=== PATIENT | female | born 1955 | race Caucasian/White ===

== ENCOUNTER 2018-02-10 13:04 | Inpatient (IN) | payer OTHER ==
--- NOTE | 2018-02-10 13:16 | PDOC ---
History of Present Illness - General Chief Complaint: Chest Pain Stated Complaint: SOB Time Seen by Provider: 02/10/18 13:16 History Source: Patient Exam Limitations: No Limitations
[2018-02-10] MEDS ORDERED: SODIUM CHLORIDE 1,000 ML IV STA (13:17)
[2018-02-10 13:35] LABS: BASO % 0.5 % (0-2.0); EOS % 0.5 % (0-4.5); HEMATOCRIT 39.9 % (32.4-45.2); HEMOGLOBIN 13.3 GM/dL (10.7-15.3); LYMPH % 14.3 % (8-40); MCH 29.1 pg (25.7-33.7); MCHC 33.4 g/dl (32.0-36.0); MEAN CELL VOLUME 87.3 fl (80-96); MEAN PLT VOLUME 7.2 fl (7.5-11.1); NEUT % 77.7 % (42.8-82.8); PLATELET COUNT 351 K/MM3 (134-434); RBC 4.56 M/mm3 (3.60-5.2); WHITE BLOOD COUNT 11.6 K/mm3 (4.0-10.0)
--- NOTE | 2018-02-10 13:45 | PDOC ---
History of Present Illness - General Chief Complaint: Chest Pain Stated Complaint: SOB Time Seen by Provider: 02/10/18 13:16 - History of Present Illness Initial Comments: 62 year old female with PMH of HTN, anxiety, and depression presenting with hypotension after an episode of sudden onset abdominal pain, diaphoresis, nausea , and weakness. States that she had all these symptoms of sudden onset approximately 1 hour prior to presentation along with a chest tightness (non- radiating, non-pleuritic, non-exertional). Abdominal pain was described as crampy 7/10 in quality in the LUQ. Denies fevers, chills, vomiting, blood from any orifice, syncope, recent illness, or other symptoms. Of note, her mother had an abdominal aortic aneurism. Also, she has lost approximately 15 pounds over the past month with salt restricted diet and exercise. 02/10/18 14:24 Past History - Past Medical History Allergies/Adverse Reactions: Allergies Allergy/AdvReac Type Severity Reaction Status Date / Time Penicillins Allergy Verified 02/10/18 13:18 Home Medications: Ambulatory Orders Escitalopram Oxalate [Lexapro -] 20 mg PO DAILY 02/11/18 Metoprolol Succinate 25 mg PO DAILY 02/11/18 Metoprolol Succinate [Toprol XL -] 25 mg PO DAILY #30 tab.sr.24h 02/12/18 levoFLOXacin [Levaquin -] 500 mg PO DAILY #5 tablet 02/12/18 COPD: No HTN: Yes - Suicide/Smoking/Psychosocial Hx Smoking History: Former smoker Have you smoked in the past 12 months: No Information on smoking cessation initiated: No Hx Alcohol Use: No Drug/Substance Use Hx: No Substance Use Type: None Review of Systems - Review of Systems Constitutional: Yes: Chills, Diaphoresis, Weakness. No: Fever, Loss of Appetite HEENTM: No: Tearing, Recent change in vision, Nose Pain Respiratory: No: Cough, Orthopnea, Shortness of Breath, Hemoptysis Cardiac (ROS): Yes: Lightheadedness, Chest Tightness. No: Chest Pain, Irregular Heart Rate, Palpitations ABD/GI: Yes: Nausea, Abdominal cramping. No: Diarrhea, Vomiting : No: Burning, Dysuria, Discharge, Frequency Musculoskeletal: Yes: Muscle Weakness. No: Muscle Pain Integumentary: No: Lesions, Lumps, Pallor, Pruritus, Rash Neurological: No: Headache, Numbness, Paresthesia Psychiatric: Yes: Anxiety, Depression *Physical Exam - Vital Signs Last Vital Signs Temp Pulse Resp BP Pulse Ox 98.3 F 58 L 18 82/61 99 02/10/18 13:16 02/10/18 13:27 02/10/18 13:27 02/10/18 13:27 02/10/18 13:27 - Physical Exam General Appearance: Yes: Nourished, Appropriately Dressed. No: Apparent Distress HEENT: positive: EOMI, SVETLANA, Normal ENT Inspection, Normal Voice Neck: positive: Trachea midline, Normal Thyroid, Supple. negative: Tender, Rigid Respiratory/Chest: positive: Lungs Clear, Normal Breath Sounds. negative: Chest Tender, Respiratory Distress, Accessory Muscle Use Cardiovascular: positive: Regular Rhythm, Regular Rate Gastrointestinal/Abdominal: positive: Normal Bowel Sounds, Flat, Soft. negative : Tender Musculoskeletal: positive: Normal Inspection. negative: CVA Tenderness Extremity: positive: Normal Capillary Refill, Normal Inspection, Normal Range of Motion. negative: Tender Integumentary: positive: Normal Color, Dry, Warm Neurologic: positive: night shift II-XII NML intact, Fully Oriented, Alert, Normal Mood/ Affect, Normal Response, Motor Strength / ED Treatment Course - LABORATORY CBC & Chemistry Diagram: 02/11/18 06:00 02/12/18 06:20 - ADDITIONAL ORDERS Additional order review: 02/10/18 13:23 RBC 4.56 MCV 87.3 MCHC 33.4 RDW 15.0 MPV 7.2 L Neutrophils % 77.7 Lymphocytes % 14.3 Monocytes % 7.0 Eosinophils % 0.5 Basophils % 0.5 Medical Decision Making - Medical Decision Making 62 year old female with PMH of HTN on three different therapies presenting with an episode of abd pain/ nausea and hypotension in our ED as low as 60s systolic. Patient was AO x3 and appeared very comfortable despite low pressures. Her skin also appeared to be well perfused. Major concern is AAA vs. over medication anti-hypertensives. Of note she has very poor renal function on our labs so contrast cannot be administered. Performed dry CT of chest/ abdomen along with abdominal ultrasound. No aneurism noted. Patient';s presures improved to 90s/ 100s systolic after 2 L NS. Patietn admitted for further workup of renal failure and hypotension. 02/14/18 00:08 *DC/Admit/Observation/Transfer Diagnosis at time of Disposition: Shortness of breath - Discharge Dispostion Disposition: HOME Condition at time of disposition: Improved - Prescriptions - Referrals - Patient Instructions - Post Discharge Activity
[2018-02-10 13:49] LABS: INR 1.04 (0.82-1.09); PROTHROMBIN TIME (PATIENT) 11.8 SEC (9.7-13.0)
--- NOTE | 2018-02-10 14:07 | PDOC ---
Attending Attestation - Resident Resident Name: JenniferLisamercedes - ED Attending Attestation I have performed the following: I have examined & evaluated the patient, The case was reviewed & discussed with the resident, I agree w/resident's findings & plan, Exceptions are as noted - HPI HPI: 02/10/18 17:34 Ms Priest is a 62 yo F with a h/o HTN She was in her usual state of health, went to work today She noted a sudden onset of nausea She denies chest pain, she denies palpitations She noted nausea No prior episodes like this No recent travel No diarrhea - Physicial Exam PE: 02/10/18 17:36 On examination Pt BP is low Pt rrr, no murmur appreciated Lungs are clear No abd tenderness at this time No lower extremity edema Pt is awake and alert, oriented, appropriately interactive - Medical Decision Making 02/10/18 17:37 Pt presents with hypotension, nausea She is notably hypotensive She denies chest pain She currently denies abdominal pain She denies dizziness DD: ACS, electrolyte abnormality, Anemia, sepsis, ruptured aneurysm Will do: Labs Consider CT 02/10/18 17:38 Laboratory Tests 02/10/18 02/10/18 02/10/18 13:23 13:23 16:41 WBC 11.6 H Hgb 13.3 Hct 39.9 Plt Count 351 Potassium 5.7 H BUN 35 H Creatinine 2.0 H Random Glucose 130 H Lactic Acid 1.4 Creatine Kinase 144 Troponin I < 0.02 B-Natriuretic Peptide 366.85 H Renal insufficiency with no old lab reports for comparison Slight QBC elevation, Lactate is nml Trop negative US nml aorta Unable to do CTA Call placed to radiology re: doing MRI with contrast Case reviewed with Dr Rondon He recommends Non con CT, recommends ordering MRI with contrast of Chest Will do US of abd aorta US: no AAA CT chest/abd/pelvis: Ovarian cyst, scant free fluid, no pericardial effusion, no pleural effusion, 02/10/18 17:41 02/10/18 17:44 Repeat BP improving s/p IVF Will admit to hospitalist Critical Care Total Critical Care Time (in minutes): 60 Critical Care Statement: The care of this patient involved high complexity decision making to prevent further life threatening deterioration of the patient 's condition and/or to evaluate & treat vital organ system(s) failure or risk of failure.
[2018-02-10 14:08] LABS: ALBUMIN 3.6 g/dl (3.4-5.0); ANION GAP 8 (8-16); BLOOD UREA NITROGEN 35 mg/dL (7-18); CALCIUM 8.9 mg/dL (8.5-10.1); CHLORIDE 100 mmol/L (98-107); CO2 28 mmol/L (21-32); GLUCOSE,RANDOM 130 mg/dL (74-106); SODIUM 136 mmol/L (136-145)
[2018-02-10 14:10] LABS: SGPT/ALT 25 U/L (12-78)
[2018-02-10 14:11] LABS: POTASSIUM 5.7 mmol/L (3.5-5.1)
[2018-02-10 14:15] LABS: ALK PHOS 67 U/L (45-117); BILIRUBIN,TOTAL 0.6 mg/dL (0.2-1.0); N-TERMINAL BNP 366.85 pg/ml (5-125); TOT PROT 7.2 g/dl (6.4-8.2)
[2018-02-10 14:17] LABS: SGOT/AST 40 U/L (15-37)
--- NOTE | 2018-02-10 18:54 | HP ---
CHIEF COMPLAINT: nausea/vomiting/weakness PCP: HISTORY OF PRESENT ILLNESS: Patient is a 62 year old female with a significant past medical history of hypertension, anxiety and depression. She presents to the ED today with hypotension (BP 70/40s) after an acute episode of sudden onset of abdominal pain , diaphoresis, nausea, dizziness and weakness while at work. She also had chest tightness (non radiating) with abdominal pain. 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 She report that took all her cardiac medications this morning at the same time she usually does. She denies any similar episodes in the past. Denies any diarrhea, nausea or vomiting. Denies sick contacts or recent travel. States that she has lost apx 15 lbs in the last month while on a weight watchers program. In the ED an abdominal CT and Ultrasound/Aorta was done which showed no evidence of AAA. She was also noted to have renal insufficiency along with hypotension. Her blood pressure improved with IVF. Imaging: Ultrasound/aorta/us, no evidence of AAA, suspected large left ovarian cyst Abd CT: No thoracic aortic aneurysm is identified. The appears to be partial imaging small amt of fluid soft tissue stranding tracking along the righ axillary vascularture representing infection, inflammation, congestion, vascular thrombosis, recent/remote surgery, post traumatic change. A 3mm left lower lobe superior segment pulm nodule is noted. [address] recommended. No abdominal aortic aneurysm is seen. A non specific 8.5 x 8.4 x 7.4 cm left adnexal cystic structure seen. PRODUCT SAFETY EXPERT consult recommended. . Possible 2 cm right ovarian cysts ER course was notable for: (1) Hypotension 70/40, reponding to IVF (2) K 5.7 (3) renal insufficiency 35/2.0 Current Medications: Escitalopram 20mg daily prn Metoprolol 25mg daily Amlodopine/Besy 5-20mg daily HCTZ 12.5 daily Recent Travel: denies PAST MEDICAL HISTORY: PAST SURGICAL HISTORY: Social History: Smoking: n/a Alcohol:n/a Drugs: n/a Family History: Allergies Penicillins Allergy (Verified 02/10/18 13:18) HOME MEDICATIONS: Home Medications Medication Instructions Recorded Amlodipine Besylate 5 mg PO 02/10/18 Hydrochlorothiazide [Hctz -] 50 mg PO DAILY 02/10/18 Lisinopril [Prinivil] 20 mg PO DAILY 02/10/18 PHYSICAL EXAMINATION Vital Signs - 24 hr 02/10/18 02/10/18 02/10/18 13:16 13:27 14:12 Temperature 98.3 F Pulse Rate 59 L 58 L Pulse Rate [ 58 L 62 Apical] Respiratory 20 18 18 Rate Blood Pressure 73/57 Blood Pressure 82/61 70/31 [Left Arm] O2 Sat by Pulse 99 99 99 Oximetry (%) 02/10/18 02/10/18 14:15 14:20 Temperature Pulse Rate Pulse Rate [ Apical] Respiratory Rate Blood Pressure Blood Pressure 87/60 90/48 [Left Arm] O2 Sat by Pulse Oximetry (%) GENERAL: Awake, alert, and fully oriented, in no acute distress. HEAD: Normal with no signs of trauma. EYES: Pupils equal, round and reactive to light, extraocular movements intact, sclera anicteric, conjunctiva clear. No lid lag. EARS, NOSE, THROAT: Ears normal, nares patent, oropharynx clear without exudates. Moist mucous membranes. NECK: Normal range of motion, supple without lymphadenopathy, JVD, or masses. LUNGS: Breath sounds equal, clear to auscultation bilaterally. No wheezes, and no crackles. No accessory muscle use. HEART: Regular rate and rhythm, normal S1 and S2 without murmur, rub or gallop. ABDOMEN: Soft, nontender, not distended, normoactive bowel sounds, no guarding, no rebound, no masses. No hepatomegaly or splenomegaly. MUSCULOSKELETAL: Normal range of motion at all joints. No bony deformities or tenderness. No CVA tenderness. UPPER EXTREMITIES: No peripheral edema. LOWER EXTREMITIES: No peripheral edema. NEUROLOGICAL: Cranial nerves II-XII intact. Normal speech. Normal gait. PSYCHIATRIC: Cooperative. Good eye contact. Appropriate mood and affect. SKIN: Warm, dry, normal turgor, no rashes or lesions noted, normal capillary refill. Laboratory Results - last 24 hr 02/10/18 02/10/18 02/10/18 13:23 13:23 13:23 WBC 11.6 H RBC 4.56 Hgb 13.3 Hct 39.9 MCV 87.3 MCH 29.1 MCHC 33.4 RDW 15.0 Plt Count 351 MPV 7.2 L Absolute Neuts (auto) 9.0 Neutrophils % 77.7 Lymphocytes % 14.3 Monocytes % 7.0 Eosinophils % 0.5 Basophils % 0.5 Nucleated RBC % 0 PT with INR 11.80 INR 1.04 Sodium 136 Potassium 5.7 H Chloride 100 Carbon Dioxide 28 Anion Gap 8 BUN 35 H Creatinine 2.0 H Creat Clearance w eGFR 25.25 Random Glucose 130 H Lactic Acid Calcium 8.9 Total Bilirubin 0.6 AST 40 H ALT 25 Alkaline Phosphatase 67 Creatine Kinase 144 Troponin I < 0.02 B-Natriuretic Peptide 366.85 H Total Protein 7.2 Albumin 3.6 02/10/18 16:41 WBC RBC Hgb Hct MCV MCH MCHC RDW Plt Count MPV Absolute Neuts (auto) Neutrophils % Lymphocytes % Monocytes % Eosinophils % Basophils % Nucleated RBC % PT with INR INR Sodium Potassium Chloride Carbon Dioxide Anion Gap BUN Creatinine Creat Clearance w eGFR Random Glucose Lactic Acid 1.4 Calcium Total Bilirubin AST ALT Alkaline Phosphatase Creatine Kinase Troponin I B-Natriuretic Peptide Total Protein Albumin ASSESSMENT/PLAN: Patient is a 62 year old female with a significant past medical history of hypertension, anxiety and depression. She presents to the ED today with hypotension (BP 70/40s) after an acute episode of sudden onset of abdominal pain , diaphoresis, nausea, dizziness and weakness while at work. She also had chest tightness (non radiating) with abdominal pain. 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 She report that took all her cardiac medications this morning at the same time she usually does. She denies any similar episodes in the past. In the ED an abdominal CT and Ultrasound/ Aorta was done which showed no evidence of AAA. She was also noted to have renal insufficiency along with hypotension. Her blood pressure improved with IVF. Imaging: Ultrasound/aorta/us, no evidence of AAA, suspected large left ovarian cyst Abd CT: No thoracic aortic aneurysm is identified. The appears to be partial imaging small amt of fluid soft tissue stranding tracking along the right axillary vascular representing infection, inflammation, congestion, vascular thrombosis, recent/remote surgery, post traumatic change. A 3mm left lower lobe superior segment pulm nodule is noted. [address] recommended. No abdominal aortic aneurysm is seen. A non specific 8.5 x 8.4 x 7.4 cm left adnexal cystic structure seen. PRODUCT SAFETY EXPERT consult recommended. . Possible 2 cm right ovarian cysts Card: Rule out ACS Trend troponins, monitor on tele. Noted to be hypotensive on admission. Holding cardiac meds. Cardiology consult Hypertension, chronic Hypertension history but present with hypotension. Monitor on tele. Hold cardiac meds. Renal Renal insufficiency Hold nephrotoxic medications, IVF. Monitor CMP in a.m. Renal consulted for further evaluation ID Rule out infection as pt is hypotensive on admission. Blood and urine studies ordered. Monitor vitals, labs. FEN NS @ 100 Monitor potassium low salt diet Prophy SCDs full code Hospitalist Screening - Colonoscopy Questionnaire Colonoscopy Questionnaire: Colonoscopy Questionnaire
[2018-02-10] MEDS ORDERED: ACETAMINOPHEN 325 MG TABLET (FP) PO PRN (21:41)
[2018-02-10] MEDS ORDERED: SODIUM CHLORIDE 1,000 ML IV SCH (22:00)
[2018-02-11 05:09] VITALS: BMI 44.5
[2018-02-11 07:56] LABS: BASO % 0.4 % (0-2.0); EOS % 0.7 % (0-4.5); HEMATOCRIT 35.1 % (32.4-45.2); LYMPH % 23.9 % (8-40); MCH 29.7 pg (25.7-33.7); MCHC 34.2 g/dl (32.0-36.0); MEAN PLT VOLUME 7.1 fl (7.5-11.1); MONO % 7.2 % (3.8-10.2); NEUT % 67.8 % (42.8-82.8); PLATELET COUNT 251 K/MM3 (134-434); RBC 4.03 M/mm3 (3.60-5.2); RDW 15.3 % (11.6-15.6); WHITE BLOOD COUNT 10.5 K/mm3 (4.0-10.0)
[2018-02-11 08:16] LABS: CHLORIDE 106 mmol/L (98-107); POTASSIUM 4.1 mmol/L (3.5-5.1); SODIUM 140 mmol/L (136-145)
--- NOTE | 2018-02-11 08:26 | PN ---
Progress Note, Physician - Current Medication List Current Medications: Active Medications Acetaminophen (Tylenol -) 650 mg PO Q6H PRN PRN Reason: PAIN LEVEL 6-10 Sodium Chloride (Normal Saline -) 1,000 mls @ 100 mls/hr IV ASDIR MIRNA Last Admin: 02/10/18 22:36 Dose: 100 mls/hr - Objective Vital Signs: Vital Signs Temperature 98.1 F 02/11/18 05:32 Pulse Rate 52 L 02/11/18 05:32 Respiratory Rate 16 02/11/18 05:32 Blood Pressure 115/63 02/11/18 05:32 O2 Sat by Pulse Oximetry (%) 99 02/11/18 02:30 Labs: CBC, BMP 02/11/18 06:00 02/11/18 06:00 INR, PTT INR 1.04 (0.82-1.09) 02/10/18 13:23
[2018-02-11 08:29] LABS: ALBUMIN 3.1 g/dl (3.4-5.0); ALK PHOS 58 U/L (45-117); ANION GAP 9 (8-16); BILIRUBIN,TOTAL 0.4 mg/dL (0.2-1.0); BLOOD UREA NITROGEN 37 mg/dL (7-18); CALCIUM 8.3 mg/dL (8.5-10.1); CHOLESTEROL 194 mg/dL (50-200); CO2 25 mmol/L (21-32); CREATININE 1.4 mg/dL (0.55-1.02); GLUCOSE,RANDOM 93 mg/dL (74-106); HDL CHOLESTEROL 47 mg/dL (40-60); MAGNESIUM 2.1 mg/dL (1.8-2.4); SGOT/AST 17 U/L (15-37); SGPT/ALT 21 U/L (12-78); TRIGLYCERIDES 107 mg/dL (35-160)
--- NOTE | 2018-02-11 08:30 | PN ---
Physical Exam: SUBJECTIVE: Patient seen and examined. Feels well, in no acute distress. No chest pain, no nausea or vomiting. OBJECTIVE: Vital Signs Period Temp Pulse Resp BP Sys/Herrera Pulse Ox Last 24 Hr 98.1 F-98.3 F 52-72 16-20 70-139/30-96 99-100 GENERAL: Awake, alert, and fully oriented, in no acute distress. HEAD: Normal with no signs of trauma. EYES: Pupils equal, round and reactive to light, extraocular movements intact, sclera anicteric, conjunctiva clear. No lid lag. EARS, NOSE, THROAT: Ears normal, nares patent, oropharynx clear without exudates. Moist mucous membranes. NECK: Normal range of motion, supple without lymphadenopathy, JVD, or masses. HEART: Regular rate and rhythm, normal S1 and S2 without murmur, rub or gallop. ABDOMEN: Soft, nontender, not distended, normoactive bowel sounds, no guarding, no rebound, no masses. No hepatomegaly or splenomegaly. MUSCULOSKELETAL: Normal range of motion at all joints. No bony deformities or tenderness. No CVA tenderness. UPPER EXTREMITIES: No peripheral edema. LOWER EXTREMITIES: No peripheral edema. NEUROLOGICAL: Normal speech. Normal gait. PSYCHIATRIC: Cooperative. Good eye contact. Appropriate mood and affect. SKIN: Warm, dry, normal turgor, no rashes or lesions noted, normal capillary refill. Laboratory Results - last 24 hr 02/10/18 02/10/18 02/10/18 13:23 13:23 13:23 WBC 11.6 H RBC 4.56 Hgb 13.3 Hct 39.9 MCV 87.3 MCH 29.1 MCHC 33.4 RDW 15.0 Plt Count 351 MPV 7.2 L Absolute Neuts (auto) 9.0 Neutrophils % 77.7 Lymphocytes % 14.3 Monocytes % 7.0 Eosinophils % 0.5 Basophils % 0.5 Nucleated RBC % 0 PT with INR 11.80 INR 1.04 Sodium 136 Potassium 5.7 H Chloride 100 Carbon Dioxide 28 Anion Gap 8 BUN 35 H Creatinine 2.0 H Creat Clearance w eGFR 25.25 Random Glucose 130 H Lactic Acid Calcium 8.9 Total Bilirubin 0.6 AST 40 H ALT 25 Alkaline Phosphatase 67 Creatine Kinase 144 Troponin I < 0.02 B-Natriuretic Peptide 366.85 H Total Protein 7.2 Albumin 3.6 02/10/18 02/10/18 02/11/18 16:41 23:25 06:00 WBC 10.5 H RBC 4.03 Hgb 12.0 Hct 35.1 MCV 87.0 MCH 29.7 MCHC 34.2 RDW 15.3 Plt Count 251 D MPV 7.1 L Absolute Neuts (auto) 7.1 Neutrophils % 67.8 Lymphocytes % 23.9 D Monocytes % 7.2 Eosinophils % 0.7 Basophils % 0.4 Nucleated RBC % 0 PT with INR INR Sodium Potassium Chloride Carbon Dioxide Anion Gap BUN Creatinine Creat Clearance w eGFR Random Glucose Lactic Acid 1.4 Calcium Total Bilirubin AST ALT Alkaline Phosphatase Creatine Kinase Troponin I < 0.02 B-Natriuretic Peptide Total Protein Albumin 02/11/18 02/11/18 06:00 06:00 WBC RBC Hgb Hct MCV MCH MCHC RDW Plt Count MPV Absolute Neuts (auto) Neutrophils % Lymphocytes % Monocytes % Eosinophils % Basophils % Nucleated RBC % PT with INR INR Sodium 140 Potassium 4.1 Chloride 106 Carbon Dioxide Anion Gap BUN Creatinine Creat Clearance w eGFR Random Glucose Lactic Acid Calcium Total Bilirubin AST ALT Alkaline Phosphatase Creatine Kinase Troponin I Cancelled B-Natriuretic Peptide Total Protein Albumin Active Medications Generic Name Dose Route Start Last Admin Trade Name Freq PRN Reason Stop Dose Admin Acetaminophen 650 mg 02/10/18 21:41 Tylenol - PO Q6H PRN PAIN LEVEL 6-10 Sodium Chloride 1,000 mls @ 100 mls/hr 02/10/18 22:00 02/10/18 22:36 Normal Saline - IV 100 mls/hr ASDIR MIRNA Administration ASSESSMENT/PLAN: Patient is a 62 year old woman with a past medical history of hypertension and obesity who presents to the ED on 02/10/2018 with a vasovagal episode in the setting of hypotension and [place]. Imaging: - Ultrasound/aorta/us, no evidence of AAA, suspected large left ovarian cyst - Abd CT: No thoracic aortic aneurysm is identified. The appears to be partial imaging small amt of fluid soft tissue stranding tracking along the right axillary vascular representing infection, inflammation, congestion, vascular thrombosis, recent/remote surgery, post traumatic change. A 3mm left lower lobe superior segment pulm nodule is noted. [address] recommended. No abdominal aortic aneurysm is seen. A non specific 8.5 x 8.4 x 7.4 cm left adnexal cystic structure seen. BATTERY CHARGER consult recommended. Possible 2 cm right ovarian cysts Neuro: Vasovagal episode in the setting of hypotension and [place]. Hypotension resolved with IVF and withholding cardiac meds. [place] improving. Hold ARBs secondary to [place] , restart Toprol. Ambulating in hallways, steady gait. Card: Ruled out for MS per cardiology. Trops negative. No events on tele. Hypertension, hx. restart Toprol. Renal Renal insufficiency 2/2 to volume depletion in setting of UTI seen on UA. Start on Levaquin 500mg x 7 days. Urine culture pending. BATTERY CHARGER: Adnexal cystic structure, possible 2 cm right ovarian cysts BATTERY CHARGER consult outpatient, referral in d/c package ID/Vascular Axillary vascular stranding may represent thrombisis, inflammation, infection, trauma? Repeat CT with focus on right axilla to evaluate this further Pulm Pulmonary nodule seen on CT, repeat CT scan ordered. FEN NS @ 100 Monitor electrolytes low salt diet Prophy SCDs full code Visit type - Emergency Visit Emergency Visit: Yes ED Registration Date: 02/10/18 Care time: The patient presented to the Emergency Department on the above date and was hospitalized for further evaluation of their emergent condition. - New Patient This patient is new to me today: No - Critical Care Critical Care patient: No - Discharge Referral Referred to [facility] Med P.[facility].: No
[2018-02-11 09:08] LABS: URINE APPEARANCE CLOUDY; URINE BILIRUBIN NEGATIVE (<2.0 mg/dL); URINE COLOR YELLOW; URINE GLUCOSE (UA) NEGATIVE (NEGATIVE); URINE KETONE NEGATIVE (NEGATIVE); URINE LEUK ESTERASE 3+ (NEGATIVE); URINE NITRITE NEGATIVE (NEGATIVE); URINE PROTEIN NEGATIVE (NEGATIVE); URINE UROBILINOGEN NEGATIVE mg/dL (0.2-1.0)
[2018-02-11 09:19] LABS: EPI CELLS FEW /HPF (FEW); URINE HYALINE CAST 149 /lpf; URINE MUCUS RARE
--- NOTE | 2018-02-11 09:34 | EKG ---
Test Reason : Blood Pressure : / mmHG Vent. Rate : 058 BPM Atrial Rate : 058 BPM P-R Int : 156 ms QRS Dur : 090 ms QT Int : 432 ms P-R-T Axes : 057 008 033 degrees QTc Int : 424 ms SINUS BRADYCARDIA NO PREVIOUS ECGS AVAILABLE Confirmed by GRACE MUNOZ MD ([id number]) on 02/11/2018 9:34:13 AM Referred By: Confirmed By:GRACE MUNOZ MD
--- NOTE | 2018-02-11 10:53 | CON.CARD ---
Consult Consult Specialty:: Cardiology Referred by:: Hospitalist Medicine Reason for Consultation:: Hypotension - History of Present Illness Chief Complaint: Chest tightness History of Present Illness: Patient is a 62 year old female with a significant past medical history of hypertension, anxiety and depression presented to the ED with hypotension (BP 70 /40s) associated with acute episode of abdominal pain, diaphoresis, nausea, dizziness, pallor, diaphoresis and weakness while at work. She also had chest tightness (non radiating) accompanying the abdominal pain. She report that took all her HTN medications this morning at the same time she usually does. Symptoms improved with IVF. Current Medications: Escitalopram 20mg daily prn Metoprolol 25mg daily Amlodopine/Besy 5-20mg daily HCTZ 12.5 daily Recent Travel: denies PAST MEDICAL HISTORY: PAST SURGICAL HISTORY: Social History: Smoking: n/a Alcohol:n/a Drugs: n/a Family History: Allergies Penicillins Allergy (Verified 02/10/18 13:18) - History Source History Provided By: Patient Limitations to Obtaining History: No Limitations - Past Medical History Cardio/Vascular: Yes: HTN ...: No - Alcohol/Substance Use Hx Alcohol Use: No - Smoking History Smoking history: Former smoker Have you smoked in the past 12 months: No If you are a former smoker, when did you quit?: 1982 Home Medications - Allergies Allergies/Adverse Reactions: Allergies Allergy/AdvReac Type Severity Reaction Status Date / Time Penicillins Allergy Verified 02/10/18 13:18 - Home Medications Home Medications: Ambulatory Orders Amlodipine Besylate/Benazepril [Lotrel 5-20 mg Capsule] 1 each PO DAILY Escitalopram Oxalate [Lexapro -] 20 mg PO DAILY 02/11/18 Hydrochlorothiazide [Hctz -] 12.5 mg PO DAILY 02/11/18 Metoprolol Succinate 25 mg PO DAILY 02/11/18 Review of Systems - Review of Systems Constitutional: reports: Diaphoresis, Weakness Vital Signs: Vital Signs Temperature 98.1 F 02/11/18 05:32 Pulse Rate 52 L 02/11/18 05:32 Respiratory Rate 16 02/11/18 05:32 Blood Pressure 115/63 02/11/18 05:32 O2 Sat by Pulse Oximetry (%) 99 02/11/18 02:30 Constitutional: Yes: No Distress, Calm Neck: Yes: Supple Respiratory: Yes: Regular, CTA Bilaterally Gastrointestinal: Yes: Soft, Abdomen, Obese, Hypoactive Bowel Sounds Cardiovascular: Yes: Regular Rate and Rhythm JVD: No Carotid Bruit: No Heart Sounds: Yes: S1, S2 Edema: No - Other Data Labs, Other Data: CBC, BMP 02/11/18 06:00 02/11/18 06:00 INR, PTT INR 1.04 (0.82-1.09) 02/10/18 13:23 Troponin, BNP 02/10/18 02/10/18 02/11/18 13:23 23:25 06:00 Troponin I < 0.02 < 0.02 < 0.02 B-Natriuretic Peptide 366.85 H 02/11/18 06:00 Troponin I Cancelled B-Natriuretic Peptide Troponin, BNP 02/10/18 02/10/18 02/11/18 13:23 23:25 06:00 Troponin I < 0.02 < 0.02 < 0.02 B-Natriuretic Peptide 366.85 H 02/11/18 06:00 Troponin I Cancelled B-Natriuretic Peptide SB @ 58 Imaging - Results Chest X-ray: Report Reviewed Cat Scan: Report Reviewed (maging: Ultrasound/aorta/us, no evidence of AAA, suspected large left ovarian cyst Abd CT: No thoracic aortic aneurysm is identified. The appears to be partial imaging small amt of fluid soft tissue stranding tracking along the right axillary vascular representing infection, inflammation, congestion, vascular thrombosis, recent/remote surgery, post traumatic change. A 3mm left lower lobe superior segment pulm nodule is noted. [address] recommended. No abdominal aortic aneurysm is seen. A non specific 8.5 x 8.4 x 7.4 cm left adnexal cystic structure seen. SERVICE WRITER consult recommended. Possible 2 cm right ovarian cysts) Problem List - Problems (1) Vasovagal near syncope Code(s): R55 - SYNCOPE AND COLLAPSE (2) Acute kidney injury Code(s): N17.9 - ACUTE KIDNEY FAILURE, UNSPECIFIED (3) Hypotension due to hypovolemia Code(s): I95.89 - OTHER HYPOTENSION; E86.1 - HYPOVOLEMIA (4) Hyperkalemia Code(s): E87.5 - HYPERKALEMIA (5) H/O: hypertension Code(s): Z86.79 - PERSONAL HISTORY OF OTHER DISEASES OF THE CIRCULATORY SYSTEM Assessment/Plan 1. Vasovagal near syncope since resolved 2. Atypical chest pain ruled out for [place] 3. H/o HTN currently hypotensive r/o sepsis 4. Acute kidney injury with hyperkalemia (pre-renal/hemodynamic alterations) improving 5. Anxiety/depression P:1. Ruled out for [place], check TSH, f/u C&S and monitor off abx 2. IVF with monitor renal recovery, electrolytes 3. Hold Lotrel and HCTZ, resume Toprol XL 25 qd as hemodynamics tolerate 4. Telemetry shows no events 5. Thank you for consultative opportunity, counselled on abortive maneuvers once prodromal sxs experienced
--- NOTE | 2018-02-11 11:05 | CONSULT ---
Consult - text type - Consultation Consultation Note: Renal Consult for [place] This is a 62 year old woman with PMhx of hypertension, anxiety, depression who presented with weakness and found to be hypotensive with [place]. Pt denies any history of CKD, Kidney stones. No flank pain. Has sporadic NSAID use. No recent Abx use. No rash. Making urine. Oral intake is good. Feels better today. Denies any SOB, chest pain, abd pain, N/V/D, Fever, chills. PMhx: as above Allergies: PCN Social Hx: No T/A/D ROS: as per HPI Home Medications Medication Instructions Recorded Amlodipine Besylate/Benazepril 1 each PO DAILY 02/11/18 [Lotrel 5-20 mg Capsule] Escitalopram Oxalate [Lexapro -] 20 mg PO DAILY 02/11/18 Hydrochlorothiazide [Hctz -] 12.5 mg PO DAILY 02/11/18 Metoprolol Succinate 25 mg PO DAILY 02/11/18 Vital Signs Temperature 98.1 F 02/11/18 05:32 Pulse Rate 52 L 02/11/18 05:32 Respiratory Rate 16 02/11/18 05:32 Blood Pressure 115/63 02/11/18 05:32 O2 Sat by Pulse Oximetry (%) 99 02/11/18 02:30 Intake & Output 02/08/18 02/09/18 02/10/18 02/11/18 23:59 23:59 23:59 23:59 Intake Total 250 Output Total 250 Balance 0 Weight 124.738 kg 129.092 kg NAD, Obese Female awake and alert RRR, No M/R CTA Obese, NT/ND No LE edmea, clubbing or cyanosis CBC, BMP 02/11/18 06:00 02/11/18 06:00 Laboratory Tests 02/11/18 02/11/18 04:35 06:00 Calcium 8.3 L Magnesium 2.1 Albumin 3.1 L Urine Blood 1+ H Ur Leukocyte Esterase 3+ H Urine WBC (Auto) 137 Current Medications Acetaminophen (Tylenol -) 650 mg PO Q6H PRN PRN Reason: PAIN LEVEL 6-10 Sodium Chloride (Normal Saline -) 1,000 mls @ 100 mls/hr IV ASDIR [facility] Last Admin: 02/10/18 22:36 Dose: 100 mls/hr 62 year old woman with PMhx of hypertension, anxiety, depression who presented with weakness and found to be hypotensive with [place]. #[place] likely secondary to intravascular volume depletion in setting of infection/ UTI #Hypotension #UTI #Leukocytosis Renal function with improvement UA w/o proteinuria or active sediment would continue isotonic saline at the present rate hold antihypertensives including CLOTON/ARB Trend renal function and electrolytes Q24 hours avoid nephrotoxins keep MAP > 65 f/u cultures, abx if needed avoid nephrotxons, no need for STAFF PHARMACIST CT of the Abd showed no obstruction or stones Thank you Omar Moon DO
--- NOTE | 2018-02-11 11:44 | PN ---
Progress Note (short form) - Note Progress Note: PULMONARY CONSULTATION DICTATED 02/11/18 IMP HYPOTENSION LIKELY VOLUME DEPLETION VASOVAGAL NEAR SYNCOPE LLL NODULE [place] PLAN IVF MONITOR BP MONITOR LYTES F/U CHEST CT [address] MCCOLLUM Problem List - Problems (1) Acute kidney injury Code(s): N17.9 - ACUTE KIDNEY FAILURE, UNSPECIFIED (2) H/O: hypertension Code(s): Z86.79 - PERSONAL HISTORY OF OTHER DISEASES OF THE CIRCULATORY SYSTEM (3) Hypotension due to hypovolemia Code(s): I95.89 - OTHER HYPOTENSION; E86.1 - HYPOVOLEMIA (4) Vasovagal near syncope Code(s): R55 - SYNCOPE AND COLLAPSE (5) Lung nodule Code(s): R91.1 - SOLITARY PULMONARY NODULE
--- NOTE | 2018-02-11 12:00 | CONS ---
PULMONARY CONSULTATION DATE OF CONSULTATION: 02/11/2018 REFERRING PROVIDER: Hema Torres NP The patient is a 62-year-old white female with past medical history of hypertension, anxiety, depression, history of tobacco use, quit in 1982, no history of COPD or asthma, admitted to [facility] with hypotension associated with acute episode of abdominal pain, diaphoresis, nausea, dizziness, and pallor while at work. Patient also complains of chest tightness, nonradiating, as well as abdominal pain. Patient apparently took all of her hypertensive medications on the morning of admission. Patient presented to the emergency room with the above. In the ER, she was treated with IV fluids with good clinical response. Of note is the patient underwent a CT scan of the chest which revealed a small, 3-mm nodule in the left lower lobe superior segment. She was also noted to have no evidence of thoracic aortic aneurysm. There was a suspected large left ovarian cyst. Patient denies any chronic cough or hemoptysis. Denies any shortness of breath. Denies any history of pneumonia. There is no history of asthma or bronchitis. PAST MEDICAL HISTORY: Again includes hypertension, anxiety, and depression. REVIEW OF SYSTEMS: No orthopnea. No PND. Positive dizziness. At this time no c/o chest pain. No palpitations. No shortness of breath at this time. No cough. No hemoptysis. No lightheadedness. No nausea. No vomiting. CURRENT MEDICATIONS: Include saline and Tylenol. PHYSICAL EXAMINATION: General: The patient is a well-developed, well-nourished female, awake, alert, in no acute distress. Vital Signs: She is afebrile. Blood pressure is 115/63, respiratory rate 15, O2 saturation is 99% on room air. HEENT: Normocephalic, atraumatic. Neck: Supple. Heart: Regular. S1, S2. Chest: Clear. Abdomen: Soft. Bowel sounds are positive. Extremities: No cyanosis or edema. LABORATORY DATA: WBC is 10.5, hemoglobin 12.0, hematocrit 35.1, and platelet count of 251,000. INR is 1.04. BUN 37, creatinine 1.4. Chest CT as noted earlier. IMPRESSION: 1. Vasovagal syncope, resolved, status post IV fluids. 2. Hypotension. 3. Left lower lobe nodule, nonspecific. 4. Acute kidney injury. PLAN: IV fluids. Monitor electrolytes, monitor renal function, monitor blood pressure. Obtain follow up chest CT in 6 months to document stability. If any evidence of interval growth, recommend a PET scan as well as thoracic surgical consultation. TEX MCCOLLUM M.D. GISSELLE/[id number] MTDD
--- NOTE | 2018-02-12 07:58 | PN ---
Progress Note, Physician History of Present Illness: pulmonary alert,no distress,-cp,-sob. bp stable - Current Medication List Current Medications: Active Medications Acetaminophen (Tylenol -) 650 mg PO Q6H PRN PRN Reason: PAIN LEVEL 6-10 Escitalopram Oxalate (Lexapro -) 20 mg PO DAILY [facility] Sodium Chloride (Normal Saline -) 1,000 mls @ 100 mls/hr IV ASDIR [facility] Last Admin: 02/10/18 22:36 Dose: 100 mls/hr Levofloxacin (Levaquin -) 500 mg PO DAILY [facility] Last Admin: 02/11/18 13:35 Dose: 500 mg Metoprolol Succinate (Toprol Xl -) 25 mg PO DAILY [facility] - Objective Vital Signs: Vital Signs Temperature 98.2 F 02/12/18 05:00 Pulse Rate 64 02/12/18 05:00 Respiratory Rate 18 02/12/18 07:19 Blood Pressure 121/68 02/12/18 05:00 O2 Sat by Pulse Oximetry (%) 98 02/12/18 07:19 Constitutional: Yes: Well Nourished, Calm Eyes: Yes: WNL HENT: Yes: WNL Neck: Yes: WNL Cardiovascular: Yes: Regular Rate and Rhythm, S1, S2 Respiratory: Yes: CTA Bilaterally Gastrointestinal: Yes: Normal Bowel Sounds, Soft Extremities: Yes: WNL Edema: No Labs: CBC, BMP Problem List - Problems (1) Acute kidney injury Code(s): N17.9 - ACUTE KIDNEY FAILURE, UNSPECIFIED (2) H/O: hypertension Code(s): Z86.79 - PERSONAL HISTORY OF OTHER DISEASES OF THE CIRCULATORY SYSTEM (3) Hypotension due to hypovolemia Code(s): I95.89 - OTHER HYPOTENSION; E86.1 - HYPOVOLEMIA (4) Vasovagal near syncope Code(s): R55 - SYNCOPE AND COLLAPSE (5) Lung nodule Code(s): R91.1 - SOLITARY PULMONARY NODULE Assessment/Plan MP HYPOTENSION LIKELY VOLUME DEPLETION RESOLVED VASOVAGAL NEAR SYNCOPE LLL NODULE [place] IMPROVING PLAN IVF MONITOR BP MONITOR LYTES,RENAL FUNCTION F/U CHEST CT [address] MCCOLLUM Problem List - Problems (1) Acute kidney injury Code(s): N17.9 - ACUTE KIDNEY FAILURE, UNSPECIFIED (2) H/O: hypertension Code(s): Z86.79 - PERSONAL HISTORY OF OTHER DISEASES OF THE CIRCULATORY SYSTEM (3) Hypotension due to hypovolemia Code(s): I95.89 - OTHER HYPOTENSION; E86.1 - HYPOVOLEMIA (4) Vasovagal near syncope Code(s): R55 - SYNCOPE AND COLLAPSE (5) Lung nodule Code(s): R91.1 - SOLITARY PULMONARY NODULE
[2018-02-12 08:53] LABS: CHLORIDE 109 mmol/L (98-107); POTASSIUM 4.5 mmol/L (3.5-5.1); SODIUM 142 mmol/L (136-145)
[2018-02-12 09:34] LABS: ALBUMIN 3.2 g/dl (3.4-5.0); ALK PHOS 61 U/L (45-117); ANION GAP 10 (8-16); BILIRUBIN,TOTAL 0.3 mg/dL (0.2-1.0); BLOOD UREA NITROGEN 28 mg/dL (7-18); CALCIUM 8.1 mg/dL (8.5-10.1); CO2 23 mmol/L (21-32); CREATININE 1.2 mg/dL (0.55-1.02); GLUCOSE,RANDOM 95 mg/dL (74-106); MAGNESIUM 2.2 mg/dL (1.8-2.4); PHOSPHOROUS 2.5 mg/dL (2.5-4.9); SGOT/AST 18 U/L (15-37); SGPT/ALT 23 U/L (12-78); TOT PROT 6.3 g/dl (6.4-8.2)
[2018-02-12] MEDS ORDERED: ESCITALOPRAM OXALATE 20 MG TABLET (FP) PO SCH (10:00)
[2018-02-12] MEDS ORDERED: metoPROLOL SUCCINATE 25 MG TAB.SR.24H (FP) PO SCH (10:00)
--- NOTE | 2018-02-12 12:18 | PN ---
Progress Note, Physician History of Present Illness: No further near or true syncope, BP stabilized, tolerating meals. - Current Medication List Current Medications: Active Medications Acetaminophen (Tylenol -) 650 mg PO Q6H PRN PRN Reason: PAIN LEVEL 6-10 Escitalopram Oxalate (Lexapro -) 20 mg PO DAILY [facility] Last Admin: 02/12/18 09:10 Dose: 20 mg Sodium Chloride (Normal Saline -) 1,000 mls @ 100 mls/hr IV ASDIR [facility] Last Admin: 02/10/18 22:36 Dose: 100 mls/hr Levofloxacin (Levaquin -) 500 mg PO DAILY [facility] Last Admin: 02/12/18 09:10 Dose: 500 mg Metoprolol Succinate (Toprol Xl -) 25 mg PO DAILY [facility] Last Admin: 02/12/18 09:10 Dose: 25 mg - Objective Vital Signs: Vital Signs Temperature 98.6 F 02/12/18 08:16 Pulse Rate 64 02/12/18 08:16 Respiratory Rate 18 02/12/18 08:16 Blood Pressure 141/78 02/12/18 08:16 O2 Sat by Pulse Oximetry (%) 98 02/12/18 07:19 Constitutional: Yes: No Distress, Calm Neck: Yes: Supple Cardiovascular: Yes: Regular Rate and Rhythm Respiratory: Yes: Regular, CTA Bilaterally Gastrointestinal: Yes: Normal Bowel Sounds, Soft, Abdomen, Obese Edema: No Labs: CBC, BMP 02/11/18 06:00 02/12/18 06:20 INR, PTT INR 1.04 (0.82-1.09) 02/10/18 13:23 - ....Imaging EKG: Report Reviewed (Tele: No events) Problem List - Problems (1) Vasovagal near syncope Code(s): R55 - SYNCOPE AND COLLAPSE (2) Acute kidney injury Code(s): N17.9 - ACUTE KIDNEY FAILURE, UNSPECIFIED (3) Hypotension due to hypovolemia Code(s): I95.89 - OTHER HYPOTENSION; E86.1 - HYPOVOLEMIA (4) H/O: hypertension Code(s): Z86.79 - PERSONAL HISTORY OF OTHER DISEASES OF THE CIRCULATORY SYSTEM Assessment/Plan 1. Vasovagal near syncope since resolved 2. Atypical chest pain ruled out for [place] 3. H/o HTN resolved hypovolemia hypotension 4. Acute kidney injury with hyperkalemia (pre-renal/hemodynamic alterations) improving 5. Anxiety/depression P:1. Ruled out for [place], C&S NGTD, d/c abx 2. IVF with monitor renal recovery, electrolytes 3. Resumed Toprol XL 25 qd as hemodynamics tolerate, Lotrel and HCTZ held for now 4. Telemetry shows no events 5. Counselled on abortive maneuvers once prodromal sxs experienced 6. D/c planning
[2018-02-12 13:44] VITALS: BP 128/57
[2018-02-12 13:45] VITALS: PULSE 60; TEMP 98.4
--- NOTE | 2018-02-12 14:40 | DS ---
Physical Exam: SUBJECTIVE: Patient seen and examined at the bedside. Feels well, in no acute distress. No chest pain. OBJECTIVE: Patient asking for PCP referrals as her PCP retiring, referrals on d/c summary. Vital Signs Period Temp Pulse Resp BP Sys/Herrera Pulse Ox Last 24 Hr 98.1 F-98.6 F 58-71 18-20 121-147/48-78 98-98 PHYSICAL EXAM GENERAL: Awake, alert, and fully oriented, in no acute distress. HEAD: Normal with no signs of trauma. EYES: Pupils equal, round and reactive to light, extraocular movements intact, sclera anicteric, conjunctiva clear. No lid lag. EARS, NOSE, THROAT: Ears normal, nares patent, oropharynx clear without exudates. Moist mucous membranes. NECK: Normal range of motion, supple without lymphadenopathy, JVD, or masses. HEART: Regular rate and rhythm, normal S1 and S2 without murmur, rub or gallop. ABDOMEN: Soft, nontender, not distended, normoactive bowel sounds, no guarding, no rebound, no masses. No hepatomegaly or splenomegaly. MUSCULOSKELETAL: Normal range of motion at all joints. No bony deformities or tenderness. No CVA tenderness. UPPER EXTREMITIES: No peripheral edema. LOWER EXTREMITIES: No peripheral edema. NEUROLOGICAL: Normal speech. Normal gait. PSYCHIATRIC: Cooperative. Good eye contact. Appropriate mood and affect. SKIN: Warm, dry, normal turgor, no rashes or lesions noted, normal capillary refill. LABS Laboratory Results - last 24 hr 02/12/18 06:20 Sodium 142 Potassium 4.5 Chloride 109 H Carbon Dioxide 23 Anion Gap 10 BUN 28 H Creatinine 1.2 H Creat Clearance w eGFR 45.52 Random Glucose 95 Calcium 8.1 L Phosphorus 2.5 Magnesium 2.2 Total Bilirubin 0.3 AST 18 ALT 23 Alkaline Phosphatase 61 Total Protein 6.3 L Albumin 3.2 L TSH 3.50 HOSPITAL COURSE: Date of Admission:02/10/18 Date of Discharge: 02/12/18 Patient is a 62 year old woman with a past medical history of hypertension and obesity who presents to the ED on 02/10/2018 with a vasovagal episode in the setting of hypotension and [place]. Imaging: - Ultrasound/aorta/us, no evidence of AAA, suspected large left ovarian cyst - Abd CT: No thoracic aortic aneurysm is identified. The appears to be partial imaging small amt of fluid soft tissue stranding tracking along the right axillary vascular representing infection, inflammation, congestion, vascular thrombosis, recent/remote surgery, post traumatic change. A 3mm left lower lobe superior segment pulm nodule is noted. [address] recommended. No abdominal aortic aneurysm is seen. A non specific 8.5 x 8.4 x 7.4 cm left adnexal cystic structure seen. EGG SORTER consult recommended. Possible 2 cm right ovarian cysts Neuro: Vasovagal episode in the setting of hypotension and [place], resolved. Hypotension resolved with IVF and withholding cardiac meds. Restarted on Toprol per cardiology. [place] resolving. Hold ARBs secondary to [place]. Ambulating in hallways, steady gait. Card: Ruled out for [place] per cardiology. Trops negative. No events on tele. Hypertension: hypotension resolved. restarted Toprol. Renal Renal insufficiency 2/2 to volume depletion in setting of UTI seen on UA. Start on Levaquin 500mg x 7 days. Urine culture pending. EGG SORTER: Adnexal cystic structure, possible 2 cm right ovarian cysts. EGG SORTER consult outpatient, referral in d/c package ID/Vascular Axillary vascular stranding may represent thrombisis, inflammation, infection, trauma. Repeat Ct scan shows artifact. negative for acute finding. Pulm Pulmonary nodule seen on CT, repeat CT scan in 3 months. FEN NS @ 100 Monitor electrolytes low salt diet Prophy SCDs full code Minutes to complete discharge: 50 Discharge Summary Reason For Visit: ACUTE KIDNEY INJURY; HYPOTENTION Current Active Problems Acute kidney injury (Acute) H/O: hypertension (Acute) Hyperkalemia (Acute) Hypotension due to hypovolemia (Acute) Lung nodule (Acute) Shortness of breath (Acute) Vasovagal near syncope (Acute) Condition: Improved - Instructions Diet, Activity, Other Instructions: Mrs Priest: You were placed on observation at [facility] on 02/10/2018 for acute kidney injury and Hypotension. For the acute kidney injury, we have given you IV hydration and your kidney function has stabilized. Please continue to hydrate with at least 6-8 glasses of water daily. For the Hypotension (low blood pressure) we have stopped all of your cardiac medications except for the metoprolol (do not take the hydrochlorothiazide or the Lotrel). Please continue the Metoprolol medication and have your blood pressure rechecked with your new primary care doctor. I have sent you a referral with Dr. Pickett (cardiology). I have listed 4 doctors that are affiliated with [facility]. Please call and make an appointment for follow up care. We recommend that you follow up with Dr. Salmeron within 3 months for a repeat CT scan for a small nodule seen on your lung. We also recommend that you see a EGG SORTER for follow up on ovarian cysts seen on imaging. I have sent referrals to both a EGG SORTER and Pulmonlogist. You have a Urinary tract infection, therefore please continue the Levaquin 500mg for 5 more days. Please call with any questions that you may have. Referrals: ON STAFF,NOT [Primary Care Provider] - Aleks James MD [Staff Physician] - (primary care doctor) Mark Salmeron MD [Staff Physician] - (Repeat Ct scan within [address] Salmeron to follow up on pulmonary nodules. ) Heidi Fuentes MD [Staff Physician] - (primary care doctor) Lonnie Velázquez MD [Staff Physician] - (primary care doctor) Thad Samuels MD [Staff Physician] - 1 Week (ovarian cysts - gynecology ) Juanita Ngo MD [Staff Physician] - (cardiology) Disposition: HOME - Home Medications Comprehensive Discharge Medication List: Ambulatory Orders Escitalopram Oxalate [Lexapro -] 20 mg PO DAILY 02/11/18 Metoprolol Succinate 25 mg PO DAILY 02/11/18 Metoprolol Succinate [Toprol XL -] 25 mg PO DAILY #30 tab.sr.24h 02/12/18 levoFLOXacin [Levaquin -] 500 mg PO DAILY #5 tablet 02/12/18 This patient is new to me today: No Emergency Visit: Yes ED Registration Date: 02/10/18 Care time: The patient presented to the Emergency Department on the above date and was hospitalized for further evaluation of their emergent condition. Critical Care patient: No - Discharge Referral Referred to [facility] Med P.C.: No
--- NOTE | 2018-02-20 15:06 | EKG ---
Test Reason : Blood Pressure : / mmHG Vent. Rate : 056 BPM Atrial Rate : 056 BPM P-R Int : 162 ms QRS Dur : 092 ms QT Int : 448 ms P-R-T Axes : 054 003 028 degrees QTc Int : 432 ms SINUS BRADYCARDIA MINIMAL VOLTAGE CRITERIA FOR LVH, MAY BE NORMAL VARIANT BORDERLINE ECG WHEN COMPARED WITH ECG OF 10-FEB-2018 13:11, NO SIGNIFICANT CHANGE WAS FOUND Confirmed by JOSE DANIEL KELLOGG, CHRISTOPHER ([id number]) on 02/20/2018 3:05:29 PM Referred By: Confirmed By:CHRISTOPHER SKY MD
== END 2018-02-12 15:30 | disposition home or self-care (01) | DRG 460 ==
LOC: JER 13:04 → JERBED 17:44 → J4W 02-11 02:18
PROVIDERS: ADMIT Internal Medicine; ATTEND Nurse Practitioner Family
DX: N17.9 Acute kidney failure, unspecified (principal); I95.9 Hypotension, unspecified; N39.0 Urinary tract infection, site not specified; E87.5 Hyperkalemia; I10 Essential (primary) hypertension; F41.9 Anxiety disorder, unspecified; F32.9 Major depressive disorder, single episode, unspecified; Z87.891 Personal history of nicotine dependence; N83.202 Unspecified ovarian cyst, left side; E66.9 Obesity, unspecified; E86.1 Hypovolemia; R91.1 Solitary pulmonary nodule; R07.89 Other chest pain; Z68.42 Body mass index [BMI] 45.0-49.9, adult
CPT/HCPCS: 36415; 71250-TC; 74176-TC; 76775-TC; 80053; 80061; 81003; 81015; 82550; 82570; 83036; 83605; 83721; 83735; 83880; 84100; 84156; 84443; 84484; 85025; 85610; 87040; 87086; 93005; 93010; 99285-25; J7030